=== PATIENT | female | born 1975 | race Caucasian/White ===

== ENCOUNTER 2016-10-13 12:19 | Emergency (ER) | payer BC ==
[~2016-10-13] VITALS: Ht 165.1 cm; Wt 100.5 kg
[~2016-10-13 12:19] MED LIST: BIRTH CONTROL; PRINZIDE 12.5 M1 TAB PO
[2016-10-13 12:33] VITALS: TEMP 97
[2016-10-13] MEDS ORDERED: QUASENSE 30 MCG1 TAB PO (12:36)
[2016-10-13] MEDS ORDERED: VITAMIN D32000 I1 PO (12:36)
[2016-10-13] MEDS ORDERED: HCTZ 25MG TAB25 MG PO (12:37)
[2016-10-13 13:25] LABS: BASO # 0.1 (0.0-0.2); BASO % 0.6 % (0.0-2.0); EOS # 0.1 (0.0-0.7); EOS % 1.6 % (0-4.0); GRAN # 6.1 (1.4-6.5); GRAN % 68.3 % (42.2-75.2); HEMATOCRIT 42.1 % (37.0-47.0); LYMPH # 2.2 (1.2-3.4); LYMPH % 24.5 % (20.0-51.0); MEAN CELL VOLUME 85 fl (80.0-100.0); MEAN CORPUSCULAR HEMOGLOBIN 28 pg (27.0-31.0); MEAN CORPUSCULAR HGB CONC 33 g/dl (33.0-37.0); MEAN PLATELET VOLUME 9.8 fl (7.4-10.4); MONO # 0.4 (0.1-0.6); MONO % 4.7 % (1.7-9.3); PLATELET COUNT 290 K/mm3 (130-400); RED BLOOD COUNT 4.98 M/mm3 (4.10-5.30); REDCELL DISTRIBUTION WIDTH-CV 13.1 % (11.5-14.5); WHITE BLOOD COUNT 8.9 K/mm3 (4.8-10.8)
[2016-10-13 13:28] LABS: PROTHROMBIN TIME 11.5 SECONDS (9.7-12.8)
[2016-10-13 13:31] LABS: PARTIAL THROMBOPLASTIN TIME 31.3 SECONDS (26.0-37.0)
[2016-10-13 13:48] LABS: ADJUSTED CALCIUM 9.4 mg/dL (8.4-10.2); ALBUMIN 4.4 gm/dL (3.5-5.0); BILIRUBIN,TOTAL 0.8 mg/dL (0.0-1.0); C-REACTIVE PROTEIN 2.4 mg/dL (0.0-0.9); CALCIUM 9.7 mg/dL (8.4-10.2); CREATININE, serum 0.77 mg/dL (0.52-1.25); POTASSIUM 3.9 mmol/L (3.4-5.0); TOTAL PROTEIN 8.1 gm/dL (6.4-8.2)
[2016-10-13 16:19] VITALS: BP 125/66; PULSE 62
== END 2016-10-13 16:22 | disposition home or self-care (01) ==
LOC: COL.ER 12:19
PROVIDERS: Nurse Practitioner
DX: R51 Headache (principal); R00.0 Tachycardia, unspecified
CPT/HCPCS: J1170; J1200; J1885; J2550; J7030

== ENCOUNTER → 2016-10-26 | Outpatient (CLI) | payer BC ==
[~2016-10-26] MED LIST changes: +HCTZ 25MG TAB25 MG PO; +QUASENSE 30 MCG1 TAB PO; +VITAMIN D32000 I1 PO
== END ==
LOC: COL.RAD 08:10
DX: R16.0 Hepatomegaly, not elsewhere classified (principal); Z90.49 Acquired absence of other specified parts of digestive tract

== ENCOUNTER → 2016-10-26 | Outpatient (CLI) | payer BC | LOC: MC.RAD 10:32 | DX: Z12.31 Encounter for screening mammogram for malignant neoplasm of breast (principal) ==

== ENCOUNTER → 2016-11-02 | Outpatient (CLI) | payer BC | LOC: COL.RAD 07:16 | DX: R16.0 Hepatomegaly, not elsewhere classified (principal) | CPT/HCPCS: A9585 ==

== ENCOUNTER → 2016-11-10 | Outpatient (CLI) | payer BC ==
[2016-11-10] VITALS (17 sets, daily range): BP systolic 110–141; BP diastolic 56–90; PULSE 73–93
[~2016-11-10] VITALS: Ht 165.1 cm; Wt 97.8 kg
[2016-11-10 07:40] LABS: PROTHROMBIN TIME 11.3 SECONDS (9.7-12.8)
== END ==
LOC: COL.RAD 06:59
PROVIDERS: Family Medicine
DX: D37.6 Neoplasm of uncertain behavior of liver, gallbladder and bile ducts (principal)
CPT/HCPCS: J2250; J3010

== ENCOUNTER → 2017-02-01 | Outpatient (CLI) | payer BC | LOC: COL.RAD 07:08 | DX: R16.0 Hepatomegaly, not elsewhere classified (principal); D13.4 Benign neoplasm of liver ==